=== PATIENT | female | born 1950 | race Caucasian/White ===

== ENCOUNTER → 2016-08-12 13:54 | Outpatient (CLI) | payer MEDICARE, BC ==
[2014-08-20 00:51] VITALS: BMI 23.9
[~2016-08-12 13:54] MED LIST: ADVIL200 MG PO; MEDROL DOSE PACK4 MG PO; MOBIC7.5 MG PO; SYNTHROID50 MCG PO
== END | disposition home or self-care (01) ==
LOC: D.MRI 13:54
DX: M50.30 Other cervical disc degeneration, unspecified cervical region (principal)

== ENCOUNTER → 2016-08-20 13:54 | Outpatient (CLI) | payer MEDICARE, BC ==
[2014-08-20 00:51] VITALS: BMI 23.9
== END | disposition home or self-care (01) ==
LOC: D.MRI 13:54
DX: M54.12 Radiculopathy, cervical region (principal); M54.2 Cervicalgia

== ENCOUNTER 2017-09-10 13:21 | Inpatient (IN) | payer MEDICARE, BC ==
[~2017-09-10] VITALS: Ht 166.4 cm; Wt 65.2 kg
--- NOTE | ~2017-09-10 | HP ---
PATIENT: DAVID MERIDA MEDICAL RECORD: [id number] ACCOUNT: [id number] [facility] ADMISSION DATE: 09/10/17 HISTORY AND PHYSICAL EXAMINATION REASON FOR ADMISSION: Acute epigastric abdominal pain. HISTORY OF PRESENT ILLNESS: The patient is a 67-year-old female who presents with increasing epigastric and upper abdominal pain for the last 24 hours. It came on abruptly. It is associated with nausea and vomiting. No change in stools or blood per rectum. She denies any alcohol use and has been on a [employer] diet. She has difficulty lying down because of the pain. Denies fever. She was seen in the office prior to admission, exquisitely tender in the upper epigastric area and across the upper abdomen. Rectal exam revealed brown heme negative stool. Her initial CBC, BMP, and liver functions are normal as was her urinalysis. She is being admitted now for acute abdominal pain, failing outpatient therapy and probable acute pancreatitis. PAST MEDICAL HISTORY: Cervical disk disease nonoperative, history of migraine headaches improved, viral meningitis remotely, GERD, cervical arthritis and disk disease, dyslipidemia, DVT left lower extremity after , hypothyroidism, postmenopausal, history of bunion, and osteoarthritis. PAST SURGICAL HISTORY: Anterior cervical fusion, total abdominal hysterectomy and oophorectomy. She had a left double osteotomy and bunionectomy, modified Perez bunionectomy, left second hammertoe correction with proximal interphalangeal arthrotomy. She has had several skin cancers removed from her nose or basal cell carcinomas, benign colon polyps by colonoscopy 2014, and elective breast reduction. ALLERGIES: MORPHINE and SULFA. HOME MEDICATIONS: Synthroid 0.025 mg a day, multivitamin 1 daily, calcium carbonate with vitamin D 500 mg b.i.d., pravastatin 20 mg with evening meal, Ocuvite Lutein 1 daily, and Mobic15 mg daily. FAMILY HISTORY: Mother of pancreatic cancer. Great grandmother had breast cancer. Father had CABG, was a smoker. SOCIAL HISTORY: She is retired. 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 She is a nonsmoker. Drinks occasional wine, but none recently. REVIEW OF SYSTEMS: GENERAL: She has felt well until the last 24 hours. No fever. HEENT: No recent visual change, sinus congestion, or sore throat. RESPIRATORY: No SOB or cough. CARDIAC: No exertional chest pain, claudication, or edema. GASTROINTESTINAL: She has had nausea due to abdominal pain with vomiting on 2 occasions. Denies any hematemesis, melena, change in stools, but severe abdominal pain as mentioned in the upper abdomen all across the right and left upper quadrant, more pronounced in the epigastrium. GYNECOLOGICAL: No vaginal bleeding. GENITOURINARY: No dysuria or incontinence. No hematuria. INTEGUMENT: No rash. MUSCULOSKELETAL: She has chronic cervical arthralgias with limited range of HISTORY AND PHYSICAL [id number] DAVID MERIDA motion. PHYSICAL EXAMINATION: VITAL SIGNS: Height 65 inches, weight 144 pounds, heart rate is 90, blood pressure 140/80. She is afebrile. GENERAL: The patient appears ill with standing in the room, pacing. HEENT: Normocephalic. Eyes are clear. NECK: Not supple. She has limited range of motion to flexion and side bend to 45 degrees. Shoulder shrug unremarkable. CHEST: Clear. HEART: Tachycardic without murmur. BREASTS: Symmetrical. ABDOMEN: Soft, exquisitely tender in the epigastrium radiating across the upper right and left quadrants. There is no rebound. Bowel sounds are hyperactive. RECTAL: Reveals brown heme negative stool. PELVIC: Deferred. EXTREMITIES: No CC&E. LABORATORY DATA: CBC, BMP, and liver functions are normal. UA is unremarkable. Amylase and lipase are pending. ASSESSMENT: 1. Acute onset of upper abdominal pain, suspicious for pancreatitis. 2. Cervical disk disease, osteoarthritis, postmenopausal, history of colon polyps, family history of pancreatic cancer, history of postop deep venous thrombosis, and gastroesophageal reflux disease. PLAN: The patient will be admitted, held n.p.o. for CT abdomen and Pelvis with contrast. Place on maintenance IV fluids, IV Dilaudid ACCOUNT SUPPORT REP. Further workup pending clinical course. TRANSINT:[id number] Voice Confirmation ID: [id number] DOCUMENT ID: [id number] REG ZHOU MD at 1749 CC: [id number] DICTATION DATE: 09/10/17 1358 GREEN CHAIN OPERATOR: 09/10/17 1422 ADM IN [address] [place] [address]
[2017-09-10 14:44] VITALS: BP 106/38; Ht 166.4 cm; Wt 65.2 kg
[2017-09-10 15:00] VITALS: BP 109/40
[2017-09-10 15:00] LABS: AMYLASE - SERUM 60 U/L (25-115); LIPASE 93 U/L (73-393)
[2017-09-10 15:08] LABS: HELICOBACTER PYLORI IGG NEGATIVE (NEGATIVE)
[2017-09-10] MEDS ORDERED: VOLTAREN100 GM TOPICAL (17:07)
[2017-09-10] MEDS ORDERED: VIACTIV SOFT C1 EACH PO (17:26)
[2017-09-10] MEDS ORDERED: PRESERVISION AR1 CAP PO (17:28)
[2017-09-10] MEDS ORDERED: BAYER CHEWABLE81 MG PO (17:29)
[2017-09-10] MEDS ORDERED: FISH OIL 1,2001 CAP PO (17:30)
[2017-09-10] MEDS ORDERED: MULTIPLE VITAMI1 TA1 PO (17:30)
[2017-09-10 17:33] LABS: APPEARANCE HAZY (CLEAR); COLOR YELLOW (YELLOW)
[2017-09-10 17:34] LABS: BILIRUBIN NEGATIVE (NEGATIVE); GLUCOSE NEGATIVE (NEGATIVE); KETONE SMALL mg/dL (NEGATIVE); NITRITE NEGATIVE (NEGATIVE); PROTEIN NEGATIVE (NEGATIVE); UROBILINOGEN NORMAL (NORMAL)
[2017-09-10 17:35] LABS: RED CELLS - URINE 0-5 /hpf (0-5); WHITE CELLS - URINE 25-50 /hpf (0-5)
[2017-09-10 17:36] LABS: BACTERIA FEW /hpf (NONE SEEN)
[2017-09-10 19:00] VITALS: BP 110/49
[2017-09-10 23:00] VITALS: BP 101/47
[2017-09-11] VITALS (7 sets, daily range): BP systolic 100–135; BP diastolic 43–58
[2017-09-11 06:22] LABS: BASOPHILS 0.6 % (0-2); EOSINOPHILS 2.8 % (0-7); HEMATOCRIT 31.4 % (36.0-48.0); HEMOGLOBIN 10.3 g/dL (12-16); LYMPHOCYTES 34.7 % (15-50); MCH 30.7 pg (26.0-34.0); MCHC 32.8 g/dL (31.0-37.0); MCV 93.7 fL (80.0-100.0); MEAN PLATELET VOLUME 9.1 fL (7.4-10.4); MONOCYTES 15.8 % (2-11); NEUTROPHILS 46.1 % (40-80); PLATELET COUNT 137 10x3/uL (130-400); RBC 3.35 10x6/uL (4.00-5.40); RDW 12.8 % (11.5-14.5); WBC 3.5 10x3/uL (4.8-10.8)
[2017-09-11 06:29] LABS: CALC OSMOLALITY 284 mosm/kg (275-300); CALCIUM 8.8 mg/dL (8.5-10.1); CARBON DIOXIDE 28.8 mmol/L (21.0-32.0); CHLORIDE - SERUM 108 mmol/L (98-107); CREATININE - SERUM 0.8 mg/dL (0.6-1.3); GLUCOSE 117 mg/dL (74-106); POTASSIUM - SERUM 3.8 mmol/L (3.5-5.1); SODIUM 143 mmol/L (136-145); UREA NITROGEN 11 mg/dL (7-18); eGFR NON AFRICAN AMERICAN 76 mL/min (90-120)
[2017-09-11 09:19] LABS: AMYLASE - SERUM 46 U/L (25-115); LIPASE 88 U/L (73-393)
[2017-09-12] VITALS (9 sets, daily range): BP systolic 88–138; BP diastolic 41–62
[2017-09-13 03:00] VITALS: BP 120/52
[2017-09-13 10:00] VITALS: BP 139/64
[2017-09-13 13:00] VITALS: BP 127/64
[2017-09-13] MEDS ORDERED: PROTONIX40 MG PO (17:04)
[2017-09-13] MEDS ORDERED: CARAFATE1 G PO (17:04)
== END 2017-09-13 17:43 | disposition home or self-care (01) | DRG 445 ==
LOC: D.CVICU 13:21 → D.SDCHOLD 13:21 → OBSVTIME 13:29 → D.MS 13:30 → D.CVICU 14:08
PROVIDERS: Family Medicine
DX: K81.9 Cholecystitis, unspecified (principal); N39.0 Urinary tract infection, site not specified; D64.9 Anemia, unspecified; Z78.0 Asymptomatic menopausal state; E03.9 Hypothyroidism, unspecified; K21.9 Gastro-esophageal reflux disease without esophagitis

== ENCOUNTER 2017-09-16 07:27 | Day surgery (SDC) | payer MEDICARE, BC ==
[~2017-09-16] VITALS: Ht 166.4 cm; Wt 64.9 kg
--- NOTE | ~2017-09-16 | OP ---
PATIENT NAME: DAVID MERIDA MEDICAL RECORD: [id number] :51 LOCATION:D[facility] ADMISSION DATE: SURGEON: MOHINDER ROCHA MD DATE OF OPERATION: 09/16/2017 PREOPERATIVE DIAGNOSIS: Biliary dyskinesia. POSTOPERATIVE DIAGNOSES: Biliary dyskinesia with hepatomegaly. PROCEDURE: 1. Laparoscopic cholecystectomy. 2. Intraoperative cholangiography without immediate surgeon interpretation. 3. An 18-gauge core needle liver biopsy. SURGEON: Mohinder Rocha MD MANAGER CONSUMER INSIGHTS: None. BLOOD LOSS: Minimal. ANESTHESIA: General. COMPLICATIONS: None. The risks, possible complications, and alternatives to the procedure were explained to the patient. She elected to proceed. OPERATIVE COURSE: The patient was conveyed to the operating room electively on 09/16/2017 General anesthesia was induced by the anesthesia staff. The abdomen was sterilely prepped and draped. A small skin kenya was accomplished in the left upper quadrant. A Veress needle was inserted through the skin kenya into the peritoneal cavity. CO2 insufflation was begun. Once a sufficient pneumoperitoneum had been achieved, a 5-mm trocar was inserted through an incision in the right upper quadrant. Under direct internal vision utilizing a television camera, a 12-mm trocar was inserted through an incision at the umbilicus. Two more trocars were inserted. A 5-mm trocar was inserted in the epigastrium. Another 5-mm trocar was inserted far laterally in the right upper quadrant. During insertion of the Veress needle and all trocars, there appeared to have been no injury to the bowels, any intraperitoneal or retroperitoneal structures. The indication for the liver biopsy was hepatomegaly. Under laparoscopic guidance, I percutaneously accessed the right upper quadrant utilizing an 18-gauge core needle liver biopsy device. Cores were obtained over the convexity of the liver. The biopsy sites were made hemostatic with electrocautery. I then advanced the cholangiogram trocar. I punctured the fundus of the gallbladder. I aspirated bile. I then injected dye. Static fluoroscopic images were obtained. These cholangiographic images are sent to the radiologist for interpretation. I withdrew the cholangiogram trocar. The gallbladder was grasped and retracted cephalad. The infundibulum was grasped and retracted laterally. Critical view of the triangle of Calot was visualized. Blunt dissection was begun on the triangle of Calot. One cystic artery and one cystic duct were identified. These were clipped multiply and divided between clips. OPERATIVE REPORT [id number] DAVID MERIDA The gallbladder was then excised from its bed and the liver. It was placed within an Endobag retrieval device and was withdrawn through the umbilical fascia defect. The 12-mm trocars were placed and the abdomen reinsufflated. I irrigated and aspirated in the right upper quadrant. There was no bleeding even at low pressure of 8. The Alberto-Esther suture closure device and 0 Vicryl sutures were used to close the umbilical fascia. All the trocars were removed and the abdomen desufflated. The incision at the umbilicus was closed with interrupted 4-0 Vicryl Rapide sutures. The other skin incisions were closed with interrupted intracuticular 3-0 Vicryls. Benzoin and Steri-Strips were applied. The patient was then extubated and conveyed to post-anesthesia care unit where she was in stable condition. TRANSINT:[id number] Voice Confirmation ID: [id number] DOCUMENT ID: [id number] MOHINDER ROCHA MD at 1518 CC: REG ZHOU [id number] DICTATION DATE: 09/16/17 1645 AGRICULTURAL SALES REPRESENTATIVE: 09/17/17 0125 [facility] 09/16/17 [facility] [address] [place] [address]
[~2017-09-16 07:27] MED LIST changes: +BAYER CHEWABLE81 MG PO; +CARAFATE1 G PO; +FISH OIL 1,2001 CAP PO; +MULTIPLE VITAMI1 TA1 PO; +PRESERVISION AR1 CAP PO; +PROTONIX40 MG PO; +VIACTIV SOFT C1 EACH PO; +VOLTAREN100 GM TOPICAL
[2017-09-16 08:39] VITALS: BP 117/72; Ht 166.4 cm; Wt 64.9 kg
[2017-09-16 09:06] LABS: HEMOGLOBIN 12.2 g/dL (12-16); MCH 31.4 pg (26.0-34.0); MCHC 33.9 g/dL (31.0-37.0); MCV 92.5 fL (80.0-100.0); MEAN PLATELET VOLUME 9.1 fL (7.4-10.4); RBC 3.89 10x6/uL (4.00-5.40); RDW 12.6 % (11.5-14.5); WBC 6.5 10x3/uL (4.8-10.8)
== END 2017-09-16 17:20 | disposition home or self-care (01) ==
LOC: D.OPS 07:27
PROVIDERS: Anesthesiology
DX: K81.1 Chronic cholecystitis (principal); R16.0 Hepatomegaly, not elsewhere classified; Z01.812 Encounter for preprocedural laboratory examination

== ENCOUNTER → 2017-10-26 17:36 | Outpatient (CLI) | payer MEDICARE, BC ==
[2017-09-16 08:39] VITALS: BMI 23.5
[2017-10-26 18:55] LABS: APPEARANCE HAZY (CLEAR); COLOR YELLOW (YELLOW); GLUCOSE NEGATIVE (NEGATIVE); NITRITE NEGATIVE (NEGATIVE); PROTEIN NEGATIVE (NEGATIVE); SPECIFIC GRAVITY 1.015 (1.005-1.020)
[2017-10-26 18:56] LABS: BILIRUBIN NEGATIVE (NEGATIVE); KETONE NEGATIVE (NEGATIVE); UROBILINOGEN NORMAL (NORMAL)
[2017-10-26 18:57] LABS: BACTERIA FEW /hpf (NONE SEEN); EPITHELIAL CELLS 0-5 /hpf (0-5); RED CELLS - URINE OCC /hpf (0-5); WHITE CELLS - URINE 0-5 /hpf (0-5)
[2017-10-26 18:58] LABS: YEAST <1+ /hpf (NONE SEEN)
== END | disposition home or self-care (01) ==
LOC: D.LABREF 17:36
PROVIDERS: Urology
DX: N39.0 Urinary tract infection, site not specified (principal); R31.9 Hematuria, unspecified

== ENCOUNTER 2017-11-13 09:35 | Emergency (ER) | payer MEDICARE, BC ==
[2017-09-16 08:39] VITALS: BMI 23.5
[2017-11-13 10:25] LABS: APPEARANCE CLEAR (CLEAR); BILIRUBIN NEGATIVE (NEGATIVE); COLOR YELLOW (YELLOW); GLUCOSE NEGATIVE (NEGATIVE); KETONE NEGATIVE (NEGATIVE); NITRITE NEGATIVE (NEGATIVE); PROTEIN NEGATIVE (NEGATIVE); UROBILINOGEN NORMAL (NORMAL)
[2017-11-13 10:26] LABS: BACTERIA MODERATE /hpf (NONE SEEN); RED CELLS - URINE 0-5 /hpf (0-5)
[2017-11-13 11:07] LABS: BASOPHILS 0.4 % (0-2); EOSINOPHILS 3.3 % (0-7); HEMATOCRIT 37.9 % (36.0-48.0); HEMOGLOBIN 12.8 g/dL (12-16); IMMATURE GRANULOCYTES 0.2 % (0-5); LYMPHOCYTES 25.7 % (15-50); MCH 31.9 pg (26.0-34.0); MCHC 33.8 g/dL (31.0-37.0); MCV 94.5 fL (80.0-100.0); MEAN PLATELET VOLUME 9.3 fL (7.4-10.4); MONOCYTES 10.3 % (2-11); NEUTROPHILS 60.1 % (40-80); PLATELET COUNT 162 10x3/uL (130-400); RBC 4.01 10x6/uL (4.00-5.40); RDW 13.3 % (11.5-14.5); WBC 5.1 10x3/uL (4.8-10.8)
[2017-11-13 11:15] LABS: ALBUMIN 4.1 g/dL (3.4-5.0); ALKALINE PHOSPHATASE 87 U/L (46-116); ALT (SGPT) 27 U/L (10-68); CALC OSMOLALITY 277 mosm/kg (275-300); CARBON DIOXIDE 29.4 mmol/L (21.0-32.0); CHLORIDE - SERUM 100 mmol/L (98-107); CREATININE - SERUM 0.8 mg/dL (0.6-1.3); GLUCOSE 102 mg/dL (74-106); POTASSIUM - SERUM 3.6 mmol/L (3.5-5.1); PROTEIN - SERUM 8.1 g/dL (6.4-8.2); SODIUM 139 mmol/L (136-145); UREA NITROGEN 13 mg/dL (7-18); eGFR NON AFRICAN AMERICAN 76 mL/min (90-120)
== END 2017-11-13 13:08 | disposition home or self-care (01) ==
LOC: D.ER 09:35
PROVIDERS: Family Medicine
DX: N39.0 Urinary tract infection, site not specified (principal); R10.9 Unspecified abdominal pain; K59.00 Constipation, unspecified

== ENCOUNTER 2017-12-08 05:30 | Day surgery (SDC) | payer MEDICARE, BC ==
[2017-12-07 09:35] LABS: HEMATOCRIT 36.5 % (36.0-48.0); MCH 31.2 pg (26.0-34.0); MCHC 32.9 g/dL (31.0-37.0); MCV 94.8 fL (80.0-100.0); MEAN PLATELET VOLUME 8.8 fL (7.4-10.4); RBC 3.85 10x6/uL (4.00-5.40); RDW 13.1 % (11.5-14.5); WBC 6.6 10x3/uL (4.8-10.8)
[~2017-12-08] VITALS: Ht 165.1 cm; Wt 62.1 kg
--- NOTE | ~2017-12-08 | OP ---
PATIENT NAME: DAVID MERIDA MEDICAL RECORD: [id number] :52 LOCATION:D.[facility] ADMISSION DATE: SURGEON: MATTHIAS GUTIERREZ MD DATE OF OPERATION: 12/08/2017 SURGEON: Matthias Gutierrez MD ANESTHESIA: MAC by Dr. Mahesh Diggs. PREOPERATIVE DIAGNOSES: Microscopic hematuria, interstitial cystitis, urethral stricture. PROCEDURES: Cystoscopy, urethral stricture dilation to 30-Hebrew, intravesical Rimso instillation 50 mL. FINDINGS: Single ureteral orifices bilaterally. Diffuse bladder inflammation. No bladder tumors seen. Urethral stricture. BLOOD LOSS: None. CLINICAL HISTORY: This is a 67-year-old female with an ongoing symptom of urinary tract infection. She has been treated with so many antibiotics that she has developed allergies to many of them. SHE IS ALLERGIC TO ANCEF, CIPRO, MACROBID, MORPHINE, NITROFURANTOIN, AND SULFA. She still continues to have urinary frequency in the daytime every 1 hour and she feels that she is not fully emptying without double voiding. She has dyspareunia and suprapubic pain. On urinalysis, she was found to have microscopic hematuria. Urine cultures have shown no growth except mixed organisms. She had a CT scan of the abdomen and pelvis on 09/10/2017 which showed a left renal cyst, which was benign, but otherwise no abnormalities. There is degenerative disc disease of the spine also noted. She comes today for cystoscopy to complete the hematuria workup. Her symptoms are suggestive of interstitial cystitis. We will also dilate any potential urethral stricture to help with her voiding difficulty. She was given Levaquin. Although she is ALLERGIC TO CIPRO, she can tolerate Levaquin. DESCRIPTION OF PROCEDURE: The patient was given IV sedation. She was placed in lithotomy position and prepped and draped. A 21-Hebrew cystoscope was placed into the bladder. The findings are as outlined above. Once the cystoscopy was performed, we then emptied the bladder fully. A 30-Hebrew urethral sound was used to dilate the urethra to 30-Hebrew. A red rubber catheter was then inserted and 50 mL of the Rimso solution was instilled into the bladder. The catheter was removed, leaving the solution in place. The patient will hold the solution in for about 15 minutes and then void it out. She will be seen next week in the clinic to have treatment #2 of the Rimso. TRANSINT:[id number] Voice Confirmation ID: [id number] DOCUMENT ID: [id number] OPERATIVE REPORT [id number] DAVID MERIDA ROBERT S MD at 1234 CC: [id number] DICTATION DATE: 12/08/17822 POLISHER EYEGLASS FRAMES: 12/08/17 1031 [facility] 12/08/17 [place] [id number] [place] [id number]
[~2017-12-08 05:30] MED LIST changes: +AZO CRANBERRY PO; +PRAVASTATIN SOD10 MG PO; +VAGIFEM10 MCG VG
[2017-12-08 06:36] VITALS: BP 136/69; Ht 165.1 cm; Wt 62.1 kg
== END 2017-12-08 09:20 | disposition home or self-care (01) ==
LOC: D.OPS 05:30 → D.PAN 07:30 → D.OPS 07:30
PROVIDERS: Anesthesiology
DX: N30.11 Interstitial cystitis (chronic) with hematuria (principal); N35.9 Urethral stricture, unspecified; Z88.1 Allergy status to other antibiotic agents; Z88.5 Allergy status to narcotic agent; Z88.2 Allergy status to sulfonamides; Z01.812 Encounter for preprocedural laboratory examination

== ENCOUNTER → 2017-12-17 17:11 | Outpatient (CLI) | payer MEDICARE, BC ==
[2017-12-08 06:36] VITALS: BMI 22.8
[2017-12-28 20:09] LABS: AEROBE ID Final report (())
[2018-01-05 18:08] LABS: AEROBE ID Final report (()); RESULT 1 Aerococcus urinae (())
== END | disposition home or self-care (01) ==
LOC: D.LABREF 17:11
PROVIDERS: Urology
DX: N39.0 Urinary tract infection, site not specified (principal)

== ENCOUNTER → 2017-12-30 13:55 | Outpatient (CLI) | payer MEDICARE, BC ==
[2017-12-08 06:36] VITALS: BMI 22.8
== END | disposition home or self-care (01) ==
LOC: D.MRI 13:55
DX: M51.16 Intervertebral disc disorders with radiculopathy, lumbar region (principal)

== ENCOUNTER → 2018-01-12 12:32 | Outpatient (CLI) | payer MEDICARE, BC ==
[2017-12-08 06:36] VITALS: BMI 22.8
== END | disposition home or self-care (01) ==
LOC: D.LABREF 12:32
DX: N39.0 Urinary tract infection, site not specified (principal)

== ENCOUNTER → 2018-01-26 11:51 | Outpatient (CLI) | payer MEDICARE, BC ==
[2017-12-08 06:36] VITALS: BMI 22.8
[2018-02-02 18:09] LABS: AEROBE ID Final report (())
== END | disposition home or self-care (01) ==
LOC: D.LABREF 11:51
PROVIDERS: Urology
DX: N39.0 Urinary tract infection, site not specified (principal)

== ENCOUNTER → 2018-03-01 17:18 | Outpatient (CLI) | payer MEDICARE, BC ==
[2017-12-08 06:36] VITALS: BMI 22.8
== END | disposition home or self-care (01) ==
LOC: D.LABREF 17:18
DX: D72.829 Elevated white blood cell count, unspecified (principal); R10.9 Unspecified abdominal pain

== ENCOUNTER → 2018-03-23 16:02 | Outpatient (CLI) | payer MEDICARE, BC ==
[2017-12-08 06:36] VITALS: BMI 22.8
== END | disposition home or self-care (01) ==
LOC: D.LABREF 16:02
DX: R31.9 Hematuria, unspecified (principal)

== ENCOUNTER → 2018-04-06 18:12 | Outpatient (CLI) | payer MEDICARE, BC ==
[2017-12-08 06:36] VITALS: BMI 22.8
== END | disposition home or self-care (01) ==
LOC: D.LABREF 18:12
DX: N89.8 Other specified noninflammatory disorders of vagina (principal); D72.829 Elevated white blood cell count, unspecified